=== PATIENT | female | born 1945 | race Caucasian/White ===

== ENCOUNTER → 2016-06-26 | Outpatient (CLI) | payer OTHER ==
[~2016-06-26] MED LIST: ASPIRINEC PO; CALAN SR PO; LISINOPRIL PO; LISINOPRIL10 MG PO; LOW DOSE ASPIRI81 M1 PO; MIRALAX255 GM PO; MULTIVITAMINS1 EAC3
== END | disposition home or self-care (01) ==
LOC: CSSDAY 10:46
DX: M81.0 Age-related osteoporosis without current pathological fracture (principal)
CPT/HCPCS: 96372; J0897